=== PATIENT | male | born 2000 | race Caucasian/White ===

== ENCOUNTER 2021-08-05 17:17 | Emergency (ER) | payer OTHER ==
[~2021-08-05] VITALS: Ht 180.3 cm; Wt 107.6 kg
[2021-08-05] MEDS ORDERED: HYDR-3363 PO (17:28)
[2021-08-05 18:46] VITALS: BP 166/80
== END 2021-08-05 18:52 | disposition home or self-care (01) ==
LOC: M ED 17:17
DX: S70.211A Abrasion, right hip, initial encounter (principal); X58.XXXA Exposure to other specified factors, initial encounter; Y92.89 Other specified places as the place of occurrence of the external cause